=== PATIENT | female | born 2000 | race Caucasian/White ===

== ENCOUNTER 2019-08-24 01:42 | Emergency (ER) | payer BC, OTHER ==
[~2019-08-24] VITALS: Ht 157 cm; Wt 77.0 kg
--- OUTSIDE RECORDS SUMMARY | 2019-08-24 01:50 | XMS REPORT | Continuity of Care Document ---
Author Organization Unknown Address Unknown Phone Unavailable Allergies There is no data. Medications There is no data. Problems There is no data. Procedures There is no data. Results There is no data. Encounters ACCT No. Visit Date/Time Discharge Status Pt. Type Provider Facility Loc./Unit Complaint [id number] 08/24/2019 01:47:[address] Emergency ERIS BERRY, ADELINA Izquierdo [facility] RT HAND INJURY
--- NOTE | 2019-08-24 02:59 | ED Upper Extremity ---
General Chief Complaint: Upper Extremity Stated Complaint: RT HAND INJURY Nursing Triage Note: TO ED VIA POV AND AMBULATORY TO ROOM 5 WITH C/O RIGHT HAND PAIN AFTER GETTING SHUT IN WEIGHTED/HEAVY DOOR AT WORK ON [place] 08/22/19 AT 0900. TOOK TYLENOL AT 2230 TONIGHT WITH NO RELIEF. Nursing Sepsis Screen: No Definite Risk Source: patient Exam Limitations: no limitations History of Present Illness Date Seen by Provider: August 24, 2019 Time Seen by Provider: 02:10 Initial Comments This 18-year-old young lady presents to the emergency room with complaints of pain and swelling of the right hand over the second metacarpal region after her hand was slammed in a door yesterday. She is concerned about possible fracture. She has pain that shoots up her forearm with range of motion of the wrist or hand. Allergies and Home Medications Patient Home Medication List Home Medication List Reviewed: Yes Review of Systems Constitutional: no symptoms reported : No Musculoskeletal: see HPI Skin: see HPI, other (bruising of the hand) Psychiatric/Neurological: No Symptoms Reported, See HPI Past Ispxhma-Ohpita-Bfzaur Hx Past Med/Social Hx: Reviewed Nursing Past Med/Soc Hx Patient Social History Alcohol Use: Denies Use Recreational Drug Use: No Smoking Status: Never a Smoker Recent Foreign Travel: No Contact w/Someone Who Travel: No Recent Infectious Disease Expo: No Recent Hopitalizations: No Physical Abuse: No Sexual Abuse: No Mistreated: No Fear: No Seasonal Allergies Seasonal Allergies: No Past Medical History Surgeries: Yes Tonsillectomy Respiratory: No Cardiac: No Neurological: No Genitourinary: No Gastrointestinal: No Musculoskeletal: No Endocrine: No HEENT: No Cancer: No Psychosocial: No Integumentary: No Blood Disorders: No Physical Exam Vital Signs Vital Signs - First Documented 08/24/19 08/24/19 02:06 03:04 Temp 37.4 Pulse 97 Resp 16 B/P (MAP) 125/84 (98) Pulse Ox 100 O2 Delivery Room Air Capillary Refill : Less Than 3 Seconds Height, Weight, BMI Height: '" Weight: lbs. oz. 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 Report not yet available. No acute injury identified on imaging. Departure Impression Primary Impression: Contusion of right hand Qualified Codes: S60.221A - Contusion of right hand, initial encounter Disposition: HOME, SELF-CARE Condition: Stable Departure-Patient Inst. Decision time for Depature: 02:58 Referrals: NO,LOCAL PHYSICIAN (PCP/Family) Primary Care Physician Patient Instructions: Contusion (DC) Add. Discharge Instructions: You may ice in 20 minute intervals. For pain take a combination of ibuprofen up to 600 mg every 6 hours and Tylenol (acetaminophen) up to 1000 mg every 6 hours as needed. Additionally you may use a wrist brace purchased [id number] to help reduce mobility for pain control. Return to the ER or follow up with your primary care provider if you have any further problems or concerns. All discharge instructions reviewed with patient and/or family. Voiced understanding. ADELINA SCHULTE MD August 24, 2019 02:59
[2019-08-24 03:04] VITALS: BP 122/82
--- NOTE | 2019-08-24 05:42 | Diagnostic Imaging Report ---
INDICATION: Hand pain COMPARISON: None. FINDINGS: 3 views of the right hand were obtained and show no fractures, dislocations, or other acute bony abnormalities. Joint spaces are well maintained throughout. The soft tissues appear unremarkable. No radiopaque foreign bodies are identified. IMPRESSION: Unremarkable radiographic exam of the right hand. Dictated by: Dictated on workstation # [id number]
== END 2019-08-24 03:06 | disposition home or self-care (01) ==
LOC: ER 01:47
DX: S60.221A Contusion of right hand, initial encounter (principal); W23.1XXA Caught, crushed, jammed, or pinched between stationary objects, initial encounter; Y92.59 Other trade areas as the place of occurrence of the external cause
CPT/HCPCS: 73130